=== PATIENT | male | born 1990 | race Caucasian/White ===

== ENCOUNTER → 2022-04-25 12:52 | Outpatient (CLI) | payer MEDICAID, SELFPAY ==
--- NOTE | ~2022-04-25 | US_ITS ---
Testicular ultrasound with doppler. Indication: Right testicular pain. Technique: Real-time sonography the scrotum was performed. Color flow Doppler and Doppler spectral an alysis were performed. Findings: The testes are homogeneous in echotexture bilaterally. Single focal coarse calcification i n the right testis, of doubtful clinical significance. There is no other evidence of an intratesticul ar mass. The right testis measures 4.9 x 1.9 x 2.9 cm and the left 4.5 x 2.0 x 3.4 cm. There is color -flow seen to both testes. Arterial and venous spectral waveforms are seen in both testes. There is n o sonographic evidence of torsion. The head of the epididymis is visualized bilaterally and is withi n normal limits. Impression: Single coarse calcification within the right testis, of doubtful clinical significance. Otherwise unremarkable exam. Reviewed, dictated and finalized at location [] [employer] Impression: Single coarse calcification within the right testis, of doubtful clinical signi ficance. Otherwise unremarkable exam.
== END ==
PROVIDERS: PCP Urology; Visit Provider Urology
DX: N50.811 Right testicular pain (principal)
CPT/HCPCS: 76870; 93976